=== PATIENT | male | born 1985 | race Hispanic/Latino ===

== ENCOUNTER 2024-11-19 13:59 | Emergency (ER) | payer SELFPAY ==
[2024-11-19 14:03] VITALS: BP 111/62
--- NOTE | 2024-11-19 14:49 | ED.GENMED ---
History of Present Illness
General
Chief Complaint: Skin Problem
Time Seen by Provider: 11/19/24 14:48
History of Present Illness
History of Present Illness:
FOCUSED PAST MEDICAL HISTORY
- Denies any significant past medical history
REVIEW OF OLD RECORDS
- No old records available for review of [facility]
Note:
CHIEF COMPLAINT(S)
Left toe pain.
HISTORY OF PRESENT ILLNESS
The patient is a 39-year-old male who presents with left big toe pain that began two days ago. He has not taken any medication for the pain. A scalpel was used to attempt drainage of a suspected paronychia on the left first toe, but no fluid was
extracted. The patient lives in [place] and was driven to the appointment by a friend.
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
The patient required translation assistance through the language line.
MEDICATIONS
An antibiotic prescription was sent to a local pharmacy.
PHYSICAL EXAM
General: Alert, no acute distress.
Skin: Warm, dry.
Head: Normocephalic, atraumatic.
Neck: Supple, trachea midline.
Eye Ears, nose, mouth and throat: Oral mucosa moist.
Cardiovascular: Normal peripheral perfusion, No edema.
Respiratory: Respirations are non-labored.
Gastrointestinal: Abdomen nondistended.
Back: Normal range of motion, Normal alignment.
Musculoskeletal: There is some prominence of soft tissue near the cuticle consistent with paronychia but no clear sign of surrounding cellulitis
Neurological: Alert and oriented to person, place, time, and situation, No focal neurological deficit observed.
Psychiatric: Cooperative, appropriate mood & affect.
PLAN
A prescription for an antibiotic was sent to the local pharmacy to address the left toe issue.
DIFFERENTIAL DIAGNOSIS
The Differential Diagnosis includes, in no particular order and is not limited to: Paronychia, Ingrown toenail, Fracture, Gout, Cellulitis, Osteomyelitis, Toenail fungus, Trauma-related injury, Arthritis, Foreign body reaction.
Disposition:
SUMMARY OF ENCOUNTER
The patient, a 39-year-old male, presented with left big toe pain that began two days ago. An attempt was made to drain a suspected paronychia on the left first toe using a scalpel, but no fluid was extracted. The patient has not taken any
medication for the pain prior to the visit. An antibiotic prescription was provided to address the toe issue.
DISPOSITION
Discharge.
ASSESSMENT
The clinical assessment suggests a case of paronychia of the left big toe.
PLAN
The patient was prescribed an antibiotic, which was sent to a local pharmacy.
MEDICATION RECONCILIATION
An antibiotic was prescribed and sent to the local pharmacy for the treatment of the suspected paronychia.
MEDICAL DECISION MAKING
-Complexity of Data Reviewed: The differential diagnosis considers paronychia, ingrown toenail, fracture, gout, cellulitis, osteomyelitis, toenail fungus, trauma-related injury, arthritis, and foreign body reaction.
-Data:
Category 2
Clinical information was obtained via a language line for translation assistance.
-Risk:
Prescription medication was prescribed and includes an antibiotic for the suspected paronychia.
DIAGNOSIS
Paronychia, ICD-10: L03.032
Phy Exam
Physical Exam
Physical Exam:
See HPI
Course
Vital Signs
Initial and Last Documented VS:
Initial Vital Signs
Temp Pulse Resp BP Pulse Ox
36.9 C 60 18 111/62 98
11/19/24 14:11/19/24 14:03 11/19/24 14:11/19/24 14:11/19/24 14:03
Last Documented Vital Signs
Temp Pulse Resp BP Pulse Ox
36.9 C 60 18 111/62 98
11/19/24 14:11/19/24 14:11/19/24 14:11/19/24 14:11/19/24 14:50
Procedures
Incision/Drainage/Joint Aspiration
Left First Toe:
Preparation: cleaned with alcohol wipe
Type of procedure: incise
Nature of site: other (paronychia)
Description of abscess: less than 3cm
Loculations broken up: No
How much fluid was obtained?: none
Treatment: left open for drainage
*Pulse Oximetry
SaO2: 98
Oxygen Mode of Delivery: Room air
Patient hypoxic: no
*Critical Care Note
Total Time (30-74mins, 75-104mins- exclusive of procedures): Not Applicable
ED Attending Note
-
Portions of this chart may have been created with voice recognition software.� Occasional wrong word or��sound alike� substitutions may have occurred due to the inherent limitations of voice recognition software.
Discharge Plan
Departure
Patient Disposition: Home (Routine Discharge)
Date of Disposition: 11/19/24
Time of Disposition: 14:59
Patient with high blood pressure during this ER visit?: Yes
Discharge Problem:
Paronychia
Instructions: Paronychia
Prescriptions:
New
cephalexin 500 mg tablet
500 mg PO TID Qty: 21 0RF
Referrals:
[facility] [Outside]
Manohar Henriquez DPM [Specified Professional Personl, Podiatry]
Activity Restrictions/Additional Instructions:
I have given you the contact information for a local plastics sheet finishing press operator that you could try following up with. I have also given the contact information for the [facility].
I sent a prescription for an antibiotic to the [facility] on [address] in [place].
It appears that you have paronychia affecting the left big toenail. I used a scalpel to drain the area however there is no pus that came out.
Return here if worse or other concerns.
Mayra sanchez dado la informaci�n de contacto de un pod�logo local con el que podr�a intentar contactar. Piper lauren dado la informaci�n de contacto de la [facility].
Envi� kimberly receta de antibi�ticos al [facility] [address] [place] [address] en [place].
Parece que tiene paroniquia en la u�a del dedo diego del pie sepideh. Us� un bistur� para drenar la maurilio, winsome no archibald salido pus.
Vuelva aqu� si empeora o tiene otras inquietudes.
Interventions
Interventions:
*Risk Screen - Suicide Last Done: 11/19/24 14:03
*General Assessment Last Done: 11/19/24 14:03
*Neglect/Abuse Screening Last Done: 11/19/24 14:45
*ED COVID-19 Vaccine History Last Done: 11/19/24 14:45
*ED Influenza Vaccine History Last Done: 11/19/24 14:45
*Nursing Disposition Last Done: 11/19/24 15:16
ED-Skin Assessment Last Done: 11/19/24 14:45
Discharge Date and Time
Discharge Date/Time: 11/19/24 15:17
Print Language: KAZAKH
== END 2024-11-19 15:17 | disposition home or self-care (01) ==
LOC: EMR 13:59
PROVIDERS: EMERGENCY PHYSICIAN Emergency Medicine
DX: L03.032 Cellulitis of left toe (principal)
CPT/HCPCS: 10060; 99282